=== PATIENT | female | born 1965 | race Caucasian/White ===

== ENCOUNTER 2016-08-16 18:22 | Emergency (ER) | payer OTHER ==
[2016-08-16] MEDS ORDERED: HYDROcodone/ACETAMIN 5-325 MG* 1 TAB PO ONE (20:23)
[2016-08-16 21:05] VITALS: BP 148/90
--- NOTE | 2016-08-16 21:33 | UC ---
Migel Brown Aidan, scribed for Ivy Saldana MD on 08/16/16 at 2056 . Back Pain HPI - HPI Summary HPI Summary: 51 y/o female presents to the Urgent Care with a complaint of acute, constant, [id number] (8/10) lower back pain that began yesterday spontaneously. Pain progressively worse. Unable to sleep last night, 2/2 pain. No fever / chills. No rash. No sob / cp. No f/u/d/h. Hx kidney stone in remote past. But not pain like this. - History of Current Complaint Chief Complaint: UCBackPain Stated Complaint: BACK PAIN Time Seen by Provider: 08/16/16 20:21 Hx Obtained From: Patient ?: No Onset/Duration: Sudden Onset, Lasting Days - about 1 day, Still Present Timing: Constant, Lasting Hours - x1 Severity Initially: Moderate Severity Currently: Moderate Pain Intensity: 8 Pain Scale Used: 0-10 Numeric Back Pain: Is Discrete @ - mid/low back, flank Character: Sharp Aggravating: Nothing - unknown Alleviating: Nothing - unknown Associated Signs And Symptoms: Positive: Other - episode of panic attack - Risk Factors AAA Risk Factors: Smoking TAD Risk Factors: Smoking - Allergies/Home Medications Allergies/Adverse Reactions: Allergies Allergy/AdvReac Type Severity Reaction Status Date / Time Ciprofloxacin [From Cipro] Allergy Anaphylatic Verified 05/16/13 12:52 Shock Sulfa Antibiotics Allergy Rash Verified 05/16/13 12:53 Horseradish Allergy Hives Uncoded 05/16/13 12:51 Shrimp Allergy Hives Uncoded 05/16/13 12:51 Home Medications: Home Medications Ibuprofen TAB* [Advil TAB*] 4 tab PO ONCE 08/16/16 [History Confirmed 08/16/16] LORazepam TAB(*) [Ativan 0.5 MG TAB (*)] 1 tab PO PRN 08/16/16 [History] PMH/Surg Hx/FS Hx/Imm Hx Previously Healthy: Yes Endocrine History Of: Denies: Diabetes, Thyroid Disease Cardiovascular History Of: Denies: Cardiac Disorders, Hypertension Respiratory History Of: Reports: COPD, Asthma GI/ History Of: Denies: Ulcer - Surgical History Surgical History: Yes Surgery Procedure, Year, and Place: left knee surgery 2005 - Family History Known Family History: Positive: Other - POST FORM REMOVER Cancers - Social History Occupation: Unemployed - homemaker Lives: With Family Alcohol Use: Occasionally Substance Use Type: None Smoking Status (MU): Heavy Every Day Tobacco Smoker Type: Cigarettes Amount Used/How Often: 1/2 ppd Length of Time of Smoking/Using Tobacco: 30 years Have You Smoked in the Last Year: Yes Household Exposure Type: Cigarettes Review of Systems Constitutional: Negative Skin: Negative Eyes: Negative ENT: Negative Respiratory: Negative Cardiovascular: Negative Gastrointestinal: Negative, Other - see hpi Genitourinary: Negative Motor: Negative Neurovascular: Negative Musculoskeletal: Arthralgia - low back pain Neurological: Negative Psychological: Negative All Other Systems Reviewed And Are Negative: Yes Physical Exam Triage Information Reviewed: Yes Appearance: Well-Nourished Vital Signs: Initial Vital Signs Temp 98.6 F 08/16/16 20:10 Pulse 91 08/16/16 20:10 Resp 20 08/16/16 20:10 Pulse Ox 97 08/16/16 20:10 Vital Signs Reviewed: Yes Eye Exam: Normal ENT Exam: Normal Neck exam: Normal Respiratory Exam: Normal, Other - no dyspnea, no tachypnea Cardiovascular Exam: Normal Cardiovascular: Positive: Brisk Capillary Refill, Other: - regular heart rate, good skin color Abdominal Exam: Normal Abdomen Description: Positive: No Organomegaly, Soft, CVA Tenderness (R) - very tender. Negative: Nontender Bowel Sounds: Positive: Present Musculoskeletal Exam: Normal Musculoskeletal: Positive: Strength Intact Neurological Exam: Normal, Other - nonfocal, grossly intact Psychological Exam: Normal, Other - responds appropriately and easily to questions Skin Exam: Normal, Other - no visible or reported rash Back Pain Course/Dx - Course Course Of Treatment: No new problems while in the [facility]. However, still in pain. Agrees to go to the ED for further evaluation / management. EMS offered and encouraged, respectfully declined. Urine dip noted - leigh. D/w pt. D/w [facility]. The patient's blood pressure was 148/90, to be checked by pcp. - Differential Dx/Diagnosis Provider Diagnoses: Acute severe R back pain Discharge - Discharge Plan Condition: Stable Disposition: TRANS HIGHER LVL OF CARE FAC Discharge Disposition Comment: Patient was offered and encouraged EMS, however, she declined. Referrals: Isaac Doan MD [Primary Care Provider] - The documentation as recorded by the Migel ovalle Aidan accurately reflects the service I personally performed and the decisions made by me, Ivy Saldana MD.
== END 2016-08-16 21:09 | disposition short-term general hospital (02) ==
LOC: UCEAST 18:22
DX: M54.5 Low back pain (principal)
CPT/HCPCS: 81003; 99212; G0463

== ENCOUNTER 2016-08-16 21:31 | Emergency (ER) | payer OTHER ==
--- NOTE | 2016-08-17 00:14 | ED ---
GI/ HPI - HPI Summary HPI Summary: Patient presents with a day of back pain that began without known injury. She has a distant history of kidney stones and worries she might have one again. She denies seeing blood in her urine, abdominal pain, diarrhea, constipation, fevers or abdominal pain. - History of Current Complaint Chief Complaint: EDFlankPain Time Seen by Provider: 08/16/16 23:47 Stated Complaint: BACK PAIN COMMING FROM [facility] Hx Obtained From: Patient Onset/Duration: Started Days Ago, Atraumatic, Still Present Timing: Constant Severity: Severe Current Severity: Moderate Pain Intensity: 4 Location of Pain: Flank - right Pain Characteristics: Sharp, Aching Associated Signs and Symptoms: Positive: Flank Pain - Allergy/Home Medications Allergies/Adverse Reactions: Allergies Allergy/AdvReac Type Severity Reaction Status Date / Time Ciprofloxacin [From Cipro] Allergy Anaphylatic Verified 08/16/16 23:54 Shock Sulfa Antibiotics Allergy Rash Verified 08/16/16 23:54 Horseradish Allergy Hives Uncoded 08/16/16 23:54 Shrimp Allergy Hives Uncoded 08/16/16 23:54 PMH/Surg Hx/FS Hx/Imm Hx Endocrine/Hematology History: Denies: Hx Diabetes, Hx Thyroid Disease Cardiovascular History: Denies: Hx Hypertension Respiratory History: Reports: Hx Asthma, Hx Chronic Obstructive Pulmonary Disease (COPD) GI History: Denies: Hx Ulcer - Surgical History Surgery Procedure, Year, and Place: left knee surgery 2005 - Immunization History Date of Tetanus Vaccine: unk Date of Influenza Vaccine: none Infectious Disease History: No Infectious Disease History: Denies: Hx Clostridium Difficile, Hx Hepatitis, Hx Human Immunodeficiency Virus (HIV), Hx of Known/Suspected MRSA, Hx Shingles, Hx Tuberculosis, Hx Known/ Suspected VRE, Hx Known/Suspected VRSA, History Other Infectious Disease, Traveled Outside the [place] in Last 30 Days - Family History Known Family History: Positive: None, Other - OUTDOOR PURSUITS INSTRUCTOR Cancers - Social History Occupation: Employed Full-time Lives: With Family Alcohol Use: Rare Substance Use Type: Reports: None Smoking Status (MU): Heavy Every Day Tobacco Smoker Type: Cigarettes Amount Used/How Often: 1/2 ppd Length of Time of Smoking/Using Tobacco: 30 years Have You Smoked in the Last Year: Yes Cessation Counseling: Patient Advised to Stop Review of Systems Negative: Fever Negative: Chest Pain Negative: Shortness Of Breath Positive: Nausea. Negative: Abdominal Pain Positive: flank pain. Negative: hematuria Negative: Myalgia Negative: Bruising Negative: Headache All Other Systems Reviewed And Are Negative: Yes Physical Exam Triage Information Reviewed: Yes Vital Signs On Initial Exam: Initial Vitals Temp Pulse Resp BP Pulse Ox 99.0 F 104 16 120/93 99 08/16/16 21:35 08/16/16 21:35 08/16/16 21:35 08/16/16 21:35 08/16/16 21:35 Vital Signs Reviewed: Yes Appearance: Positive: Well-Appearing, Pain Distress, Obese Skin: Positive: Warm, Skin Color Reflects Adequate Perfusion, Dry, Soft Head/Face: Positive: Normal Head/Face Inspection Eyes: Positive: EOMI, JOHN, Conjunctiva Clear ENT: Positive: Hearing grossly normal, Pharynx normal Neck: Positive: Supple, Nontender, No Lymphadenopathy Respiratory/Lung Sounds: Positive: Clear to Auscultation, Breath Sounds Present Cardiovascular: Positive: RRR Abdomen Description: Positive: Nontender, Soft, CVA Tenderness (R), CVA Tenderness (L). Negative: Distended, Guarding, McBurney's Point Tenderness Bowel Sounds: Positive: Present Musculoskeletal: Negative: Edema Left, Edema Right Neurological: Positive: Sensory/Motor Intact, Alert, Oriented to Person Place, Time, NV Bundle Intact Distally, Normal Gait Psychiatric: Positive: Affect/Mood Appropriate AVPU Assessment: Alert - [place] Coma Scale Coma Scale Total: 15 Diagnostics - Vital Signs Vital Signs Temp Pulse Resp BP Pulse Ox 08/16/16 23:49 98.0 F 90 17 119/70 95 08/16/16 23:10 98.4 F 94 16 129/90 98 08/16/16 21:35 99.0 F 104 16 120/93 99 - Laboratory Result Diagrams: 08/16/16 23:45 08/17/16 00:43 Lab Statement: Any lab studies that have been ordered have been reviewed, and results considered in the medical decision making process. - Ultrasound No standard instances Ultrasound Interpretation: No Acute Changes Ultrasound Interpretation Completed By: Radiologist REDD Course/Dx - Diagnoses Differential Diagnoses - Female: Appendicitis, Constipation, Dehydration, Gastroenteritis (Viral), Gerd, Renal Calculi, Renal Colic, Urinary Tract Infection, Ureteral Calculi Provider Diagnoses: Flank pain Discharge - Discharge Plan Condition: Stable Disposition: HOME Patient Education Materials: Flank Pain (ED) Referrals: Isaac Doan MD [Primary Care Provider] - Additional Instructions: Please begin using ibuprofen 600mg three times daily with meals tomorrow evening for the next 2-3 days. Drink extra fluids to flush your kidneys and follow-up with your primary care provider as needed. Return to the emergency department if symptoms worsen.
[2016-08-17 00:23] LABS: Urine Bacteria 1+ (Absent); Urine Bilirubin Negative (Negative); Urine Glucose Negative (Negative); Urine Nitrite Negative (Negative)
[2016-08-17 00:26] LABS: ALT 23 U/L (7-52); Albumin 3.9 g/dL (3.2-5.2); Alkaline Phosphatase 88 U/L (34-104); BUN/Creatinine Ratio 11.1 (8-20); Blood Urea Nitrogen 10 mg/dL (6-24); C Reactive Protein 4.45 mg/L (< 5.00); CO2 Carbon Dioxide 23 mmol/L (22-32); Calcium 9.1 mg/dL (8.6-10.3); Chloride 104 mmol/L (101-111); EGFR African American 84.9 (>60); Globulin 3.5 g/dL (2-4); Glucose 105 mg/dL (70-100); Sodium 136 mmol/L (133-145); Total Protein 7.4 g/dL (6.4-8.9)
[2016-08-17 00:42] LABS: Hematocrit 39 % (35-47); Mean Corpuscular HGB Conc 34 g/dl (31-36); Mean Corpuscular Hemoglobin 30 pg (27-31); Mean Corpuscular Volume 90 fL (80-97); Mean Platelet Volume 9 um3 (7.4-10.4); Red Blood Count 4.31 10^6/ul (4.0-5.4); Red Cell Distribution Width 14 % (10.5-15); White Blood Count 12.6 10^3/ul (3.5-10.8)
[2016-08-17] MEDS ORDERED: Ketorolac INJ* 30 MG/ML 1 ML VIAL IV ONE (01:51)
[2016-08-17 02:22] VITALS: BP 120/74
--- NOTE | 2016-08-17 07:50 | RAD ---
HISTORY: Right flank pain, hematuria COMPARISONS: April 09, 2010 TECHNIQUE: Multiple transverse and longitudinal ultrasound images were obtained of the right kidney using grayscale and color Doppler imaging. FINDINGS: RIGHT KIDNEY: The right kidney is normal in shape, size, contour, and echogenicity. There is no hydronephrosis or nephrolithiasis. The right kidney measures 11.8 x 5.2 x 5.1 cm. LEFT KIDNEY: No images are submitted of the left kidney BLADDER: No images are submitted of the bladder. AORTA AND IVC: No images are submitted of the vasculature. RETROPERITONEUM: Unremarkable. OTHER: None. IMPRESSION: NO RIGHT HYDRONEPHROSIS OR NEPHROLITHIASIS
--- NOTE | 2016-08-20 09:03 | PN ---
Progress Note - Progress Note Note: urine culture grew nothing of clinically significance so no further action needed.
== END 2016-08-17 02:21 | disposition home or self-care (01) ==
LOC: ED 21:31
DX: R10.84 Generalized abdominal pain (principal); M54.9 Dorsalgia, unspecified; R11.0 Nausea; F17.210 Nicotine dependence, cigarettes, uncomplicated; Z87.09 Personal history of other diseases of the respiratory system
CPT/HCPCS: 36415; 76775; 80053; 81003; 81015; 85025; 86140; 87086; 99282; J1885

== ENCOUNTER 2018-04-17 16:24 | Emergency (ER) | payer BC, OTHER ==
[2018-04-17 16:55] VITALS: BP 139/96
--- NOTE | 2018-04-17 17:15 | UC ---
Skin Complaint HPI - HPI Summary HPI Summary: rash on lower extremities, neck , face in the last several days . since wearing a pair of white socks - History of Current Complaint Chief Complaint: UCSkin Time Seen by Provider: 04/17/18 17:03 Stated Complaint: ALLERGIC REACTION Hx Obtained From: Patient ?: No Onset/Duration: Gradual Onset Skin Exposure Onset/Duration: Days Ago Pain Intensity: 7 Location: Discrete, Face Aggravating Factor(s): OTC Meds Alleviating Factor(s): Nothing - Allergy/Home Medications Allergies/Adverse Reactions: Allergies Allergy/AdvReac Type Severity Reaction Status Date / Time ciprofloxacin [From Cipro] Allergy Severe Anaphylatic Verified 04/17/18 16:55 Shock Sulfa (Sulfonamide Allergy Severe Rash Verified 04/17/18 16:55 Antibiotics) Horseradish Allergy Hives Uncoded 04/17/18 16:55 Shrimp Allergy Hives Uncoded 04/17/18 16:55 Home Medications: Home Medications Cyclobenzaprine TAB* [Flexeril 10 MG TAB*] 10 mg PO QPM 04/17/18 [History Confirmed 04/17/18] Gabapentin CAP(*) [Neurontin 100 mg CAP(*)] 04/17/18 [History] diPHENhydraMINE PO* [Benadryl PO 25 MG TAB*] 50 mg PO BEDTIME 04/17/18 [History Confirmed 04/17/18] PMH/Surg Hx/FS Hx/Imm Hx Previously Healthy: Yes - Surgical History Surgical History: Yes Surgery Procedure, Year, and Place: left knee surgery 2005. TUBAL LIGATION 1994 - Family History Known Family History: Positive: None, Other - PANTRY STEWARD/STEWARDESS Cancers - Social History Alcohol Use: None Substance Use Type: None Smoking Status (MU): Current Every Day Smoker Type: Cigarettes Amount Used/How Often: 1/2 ppd Length of Time of Smoking/Using Tobacco: 30 years Have You Smoked in the Last Year: Yes Household Exposure Type: Cigarettes Review of Systems All Other Systems Reviewed And Are Negative: Yes Constitutional: Positive: Negative Skin: Positive: Rash Eyes: Positive: Negative ENT: Positive: Negative Respiratory: Positive: Negative Cardiovascular: Positive: Negative Gastrointestinal: Positive: Negative Genitourinary: Positive: Negative Motor: Positive: Negative Neurovascular: Positive: Negative Physical Exam Triage Information Reviewed: Yes Appearance: Well-Appearing, Other: - erythematous rash in the area of the bridge of the nose , bilateral lower leg erythema and weeping Vital Signs: Initial Vital Signs Temp 37.1 C 04/17/18 16:48 Pulse 112 04/17/18 16:48 Resp 20 04/17/18 16:48 BP 139/96 04/17/18 16:48 Pulse Ox 98 04/17/18 16:48 Vital Signs Reviewed: Yes Eye Exam: Normal ENT Exam: Normal Neck exam: Normal Neck: Positive: Supple Respiratory Exam: Normal Respiratory: Positive: Chest non-tender Cardiovascular Exam: Normal Skin Exam: Other - bilateral lower leg erythema, macular papular skin lesions Skin: Positive: Rashes - bilateral facial edema in the area of the bridge nose Course/Dx - Diagnoses Provider Diagnosis: Contact dermatitis Discharge - Sign-Out/Discharge Documenting (check all that apply): Patient Departure All imaging exams completed and their final reports reviewed: No Studies - Discharge Plan Condition: Fair Disposition: HOME Prescriptions: Fluocinonide 0.05% CM (NF) [Lidex 0.05% CREAM (NF)] 1 applic TOPICAL BID #1 tube Referrals: Isaac Doan MD [Primary Care Provider] - - Billing Disposition and Condition Condition: FAIR Disposition: Home
== END 2018-04-17 17:35 | disposition home or self-care (01) ==
LOC: UCEAST 16:24
DX: L25.9 Unspecified contact dermatitis, unspecified cause (principal); Z88.1 Allergy status to other antibiotic agents; Z88.2 Allergy status to sulfonamides; F17.210 Nicotine dependence, cigarettes, uncomplicated
CPT/HCPCS: 99212; G0463